=== PATIENT | male | born 1975 | race Asian ===

== ENCOUNTER 2022-04-28 15:03 | Inpatient (IN) | payer BC, OTHER ==
[2022-04-28] MEDS ORDERED: TAMSULOSIN HCL 0.4 MG CAP PO ONE (16:17)
[2022-04-28] MEDS ORDERED: TAMSULOSIN HCL 0.4 MG CAP ONE (16:25)
[2022-04-28 17:47] LABS: EPI CELLS 22 /uL (0-25.1); HYALINE CASTS 23 /uL (0-3.1); PH,URINE 7.5 (5.0-8.0); URINE APPEARANCE TURBID; URINE BILIRUBIN 2+ (NEGATIVE); URINE COLOR RED; URINE GLUCOSE (UA) NEGATIVE (NEGATIVE); URINE KETONE NEGATIVE (NEGATIVE); URINE LEUK ESTERASE 2+ (NEGATIVE); URINE NITRITE POSITIVE (NEGATIVE); URINE PROTEIN 2+ (NEGATIVE); URINE RBC 45432 /uL (0-23.9); URINE UROBILINOGEN 0.2 mg/dL (0.2-1.0); URINE WBC 137 /uL (0-25.8)
[2022-04-28] MEDS ORDERED: morphine CARPU-JECT 4 MG/1 ML DISP.SYRIN IVPUSH ONE ×2 (18:05→19:58)
[2022-04-28] MEDS ORDERED: morphine SULFATE 4 MG/ML VIAL ONE ×2 (18:28→20:03)
[2022-04-28 18:53] LABS: BASO % 0.7 % (0-2.0); EOS % 0.2 % (0-4.5); HEMATOCRIT 44.3 % (35.4-49); HEMOGLOBIN 14.9 GM/dL (11.7-16.9); LYMPH % 23.2 % (8-40); MCH 28.5 pg (25.7-33.7); MCHC 33.6 g/dl (32.0-35.9); MEAN CELL VOLUME 84.8 fl (80-96); NEUT % 65.9 % (42.8-82.8); PLATELET COUNT 275 10^3/uL (134-434); RBC 5.22 M/mm3 (4.00-5.60); WHITE BLOOD COUNT 8.1 K/mm3 (4.0-10.0)
[2022-04-28 19:22] LABS: ALBUMIN 4.3 g/dl (3.4-5.0); BLOOD UREA NITROGEN 16.5 mg/dL (7-18)
[2022-04-28 19:25] LABS: CREATININE 1.2 mg/dL (0.55-1.3)
[2022-04-28 19:26] LABS: TOT PROT 7.9 g/dl (6.4-8.2)
[2022-04-28 20:13] LABS: URINE BACTERIA 17630.5 /uL (0-1359)
[2022-04-28] MEDS ORDERED: CEFTRIAXONE 1,000 MG in DEXTROSE 5%-WATER - 50 ML IVPB ONE (20:25)
[2022-04-28] MEDS ORDERED: CEFTRIAXONE 1 GM/50 ML BAG ONE (20:33)
[2022-04-28] MEDS ORDERED: HYDROmorphone HCL CARPU-JECT 2 MG/1 ML DISP.SYRIN IVPB ONE (21:02)
[2022-04-28] MEDS ORDERED: SODIUM CHLORIDE 0.9% 500 ML INFUS.BAG IV ONE (21:04)
[2022-04-28] MEDS ORDERED: HYDROmorphone HCl 2 MG/ML VIAL ONE (21:10)
[2022-04-29] MEDS ORDERED: ONDANSETRON 4 MG/2 ML VIAL IVPUSH PRN (00:39)
[2022-04-29] MEDS ORDERED: morphine SULFATE 4 MG/ML VIAL ONE (01:05)
[2022-04-29] MEDS: morphine SULFATE 4 MG/ML VIAL IVPUSH PRN ×2 (01:12→18:27)
[2022-04-29] MEDS: DEXTROSE 5%-0.45% SALINE 1,000 ML IV SCH ×2 (01:17→17:00)
[2022-04-29] MEDS ORDERED: TAMSULOSIN HCL 0.4 MG CAP ONE (07:48)
[2022-04-29] MEDS: TAMSULOSIN HCL 0.4 MG CAP PO SCH (07:51)
[2022-04-29 07:54] LABS: BASO % 0.3 % (0-2.0); HEMATOCRIT 44.1 % (35.4-49); HEMOGLOBIN 14.9 GM/dL (11.7-16.9); LYMPH % 13.1 % (8-40); MCH 28.7 pg (25.7-33.7); MCHC 33.7 g/dl (32.0-35.9); MEAN PLT VOLUME 8.2 fl (7.5-11.1); MONO % 9.6 % (3.8-10.2); PLATELET COUNT 260 10^3/uL (134-434); RBC 5.18 M/mm3 (4.00-5.60); RDW 13.1 % (11.9-15.9); WHITE BLOOD COUNT 11.3 K/mm3 (4.0-10.0)
[2022-04-29 08:00] LABS: ALBUMIN 3.6 g/dl (3.4-5.0); BLOOD UREA NITROGEN 16.9 mg/dL (7-18); CALCIUM 8.6 mg/dL (8.5-10.1)
[2022-04-29 08:03] LABS: CREATININE 1.3 mg/dL (0.55-1.3)
[2022-04-29 08:04] LABS: BILIRUBIN,TOTAL 0.8 mg/dL (0.2-1)
[2022-04-29] MEDS ORDERED: CEFTRIAXONE 1 GM/50 ML BAG ONE (09:38)
[2022-04-29] MEDS ORDERED: ENOXAPARIN NA (PORCINE) 40 MG/0.4 ML DISP.SYRIN SQ ONE (09:38)
[2022-04-29] MEDS: CEFTRIAXONE 1 GM in DEXTROSE 5%-WATER - 50 ML IVPB SCH (09:48)
[2022-04-29] MEDS: ENOXAPARIN NA (PORCINE) 40 MG/0.4 ML DISP.SYRIN SQ SCH (09:48)
[2022-04-29 09:58] LABS: EPI CELLS 4 /uL (0-25.1); HYALINE CASTS 0 /uL (0-3.1); PH,URINE 5.5 (5.0-8.0); URINE APPEARANCE CLOUDY; URINE BACTERIA 2 /uL (0-1359); URINE BILIRUBIN NEGATIVE (NEGATIVE); URINE COLOR YELLOW; URINE GLUCOSE (UA) NEGATIVE (NEGATIVE); URINE KETONE 1+ (NEGATIVE); URINE LEUK ESTERASE NEGATIVE (NEGATIVE); URINE NITRITE NEGATIVE (NEGATIVE); URINE PROTEIN TRACE (NEGATIVE); URINE RBC 1649 /uL (0-23.9); URINE UROBILINOGEN 0.2 mg/dL (0.2-1.0); URINE WBC 18 /uL (0-25.8)
[2022-04-29] MEDS ORDERED: ACETAMINOPHEN 325 MG TABLET (FP) PO ONE (11:50)
[2022-04-29] MEDS ORDERED: ACETAMINOPHEN 325 MG TABLET (FP) ONE (11:51)
[2022-04-29 17:09] VITALS: BMI 28.6
[2022-04-29] MEDS ORDERED: HYDROmorphone HCL CARPU-JECT 2 MG/1 ML DISP.SYRIN IVPB ONE (20:42)
[2022-04-29] MEDS ORDERED: HYDROmorphone HCl 2 MG/ML VIAL IVPB ONE (21:00)
[2022-04-29] MEDS ORDERED: HYDROmorphone HCl 2 MG/ML VIAL ONE (21:02)
[2022-04-30] MEDS: DEXTROSE 5%-0.45% SALINE 1,000 ML IV SCH ×2 (02:25→06:02)
[2022-04-30] MEDS: morphine SULFATE 4 MG/ML VIAL IVPUSH PRN ×4 (04:58→20:51)
[2022-04-30] MEDS ORDERED: cefTRIAXone SODIUM 1 GM VIAL ONE (08:55)
[2022-04-30] MEDS ORDERED: DEXTROSE 5%-WATER - 50 ML IVPB ONE (08:55)
[2022-04-30] MEDS: TAMSULOSIN HCL 0.4 MG CAP PO SCH (09:02)
[2022-04-30] MEDS: CEFTRIAXONE 1 GM in DEXTROSE 5%-WATER - 50 ML IVPB SCH (09:03)
[2022-04-30] MEDS: ENOXAPARIN NA (PORCINE) 40 MG/0.4 ML DISP.SYRIN SQ SCH (09:03)
[2022-04-30 11:59] LABS: BASO % 0.6 % (0-2.0); EOS % 0.9 % (0-4.5); HEMATOCRIT 36.6 % (35.4-49); HEMOGLOBIN 12.8 GM/dL (11.7-16.9); LYMPH % 32.9 % (8-40); MCH 29.3 pg (25.7-33.7); MCHC 34.9 g/dl (32.0-35.9); MEAN CELL VOLUME 83.9 fl (80-96); MEAN PLT VOLUME 8.4 fl (7.5-11.1); MONO % 14.4 % (3.8-10.2); NEUT % 51.2 % (42.8-82.8); PLATELET COUNT 236 10^3/uL (134-434); RBC 4.36 M/mm3 (4.00-5.60); RDW 13.3 % (11.9-15.9); WHITE BLOOD COUNT 7.3 K/mm3 (4.0-10.0)
[2022-04-30 12:46] LABS: CALCIUM 8.3 mg/dL (8.5-10.1)
[2022-04-30 12:47] LABS: ALBUMIN 3.1 g/dl (3.4-5.0); BLOOD UREA NITROGEN 11.2 mg/dL (7-18)
[2022-04-30 12:52] LABS: BILIRUBIN,TOTAL 0.8 mg/dL (0.2-1)
[2022-05-01] MEDS: DEXTROSE 5%-0.45% SALINE 1,000 ML IV SCH ×2 (00:27→12:27)
[2022-05-01] MEDS: morphine SULFATE 4 MG/ML VIAL IVPUSH PRN ×3 (00:27→22:39)
[2022-05-01] MEDS: SENNOSIDES 8.6MG TABLET (FP) PO PRN (00:30)
[2022-05-01] MEDS: ENOXAPARIN NA (PORCINE) 40 MG/0.4 ML DISP.SYRIN SQ SCH (09:29)
[2022-05-01] MEDS: TAMSULOSIN HCL 0.4 MG CAP PO SCH (09:29)
[2022-05-01] MEDS: POLYETHYLENE GLYCOL (HEALTHYLAX) 3350 17 GM PACKET PO SCH (09:29)
[2022-05-02] MEDS: DEXTROSE 5%-0.45% SALINE 1,000 ML IV SCH ×2 (01:58→11:28)
[2022-05-02] MEDS: morphine SULFATE 4 MG/ML VIAL IVPUSH PRN ×2 (03:27→08:10)
[2022-05-02] MEDS: SENNOSIDES 8.6MG TABLET (FP) PO PRN (03:41)
[2022-05-02] MEDS: POLYETHYLENE GLYCOL (HEALTHYLAX) 3350 17 GM PACKET PO SCH (09:25)
[2022-05-02] MEDS: TAMSULOSIN HCL 0.4 MG CAP PO SCH (09:25)
[2022-05-02] MEDS: ENOXAPARIN NA (PORCINE) 40 MG/0.4 ML DISP.SYRIN SQ SCH (09:25)
[2022-05-02 22:36] VITALS: PULSE 59
[2022-05-03] MEDS: DEXTROSE 5%-0.45% SALINE 1,000 ML IV SCH ×2 (02:36→15:20)
[2022-05-03 05:24] VITALS: BP 133/71; TEMP 98.2
[2022-05-03] MEDS: TAMSULOSIN HCL 0.4 MG CAP PO SCH (09:22)
[2022-05-03] MEDS: ENOXAPARIN NA (PORCINE) 40 MG/0.4 ML DISP.SYRIN SQ SCH (09:23)
[2022-05-03] MEDS: POLYETHYLENE GLYCOL (HEALTHYLAX) 3350 17 GM PACKET PO SCH (09:23)
== END 2022-05-03 17:58 | disposition home or self-care (01) | DRG 690 ==
LOC: JER 15:03 → JERBED 22:04 → J6S 04-29 16:31
PROVIDERS: ADMIT Internal Medicine; ATTEND Internal Medicine
DX: N39.0 Urinary tract infection, site not specified (principal); R31.9 Hematuria, unspecified; N28.89 Other specified disorders of kidney and ureter
CPT/HCPCS: 0241U-QW; 36415; 71260-TC; 74177-TC; 74183-TC; 76775-TC; 80053; 81003; 85025; 87086; 93005; 93010; 99285-25; Q9967